=== PATIENT | male | born 1950 | race Caucasian/White ===

== ENCOUNTER 2018-02-25 08:33 | Emergency (ER) | payer SELFPAY ==
[~2018-02-25] VITALS: Ht 172.7 cm; Wt 80.0 kg
[2018-02-25 09:47] LABS: CLARITY URINE CLEAR (CLEAR); COLOR URINE YELLOW (YELLOW); KETONES URINE NEGATIVE (NEGATIVE); LEUKOCYTE ESTERASE URINE NEGATIVE (NEGATIVE); NITRITE URINE NEGATIVE (NEGATIVE); OCCULT BLOOD URINE NEGATIVE (NEGATIVE); PROTEIN URINE NEGATIVE (NEGATIVE); SPECIFIC GRAVITY URINE 1.011 (1.005-1.030); UROBILINOGEN URINE 0.2 E.U./dL (0.2-1.0)
[2018-02-25 10:10] VITALS: BP 132/79
== END 2018-02-25 10:23 | disposition home or self-care (01) ==
LOC: ER 08:33 → EDBD 08:33 → ER 10:23
DX: R33.9 Retention of urine, unspecified (principal)
CPT/HCPCS: 51702; 81003; 87086; 99284

== ENCOUNTER 2018-02-27 07:53 | Emergency (ER) | payer SELFPAY ==
[~2018-02-27] VITALS: Ht 157.5 cm; Wt 66.7 kg
[2018-02-27 07:58] VITALS: BP 128/77
== END 2018-02-27 09:12 | disposition home or self-care (01) ==
LOC: ER 08:08
DX: R33.9 Retention of urine, unspecified (principal)
CPT/HCPCS: 99281